=== PATIENT | female | born 1955 | race Caucasian/White ===

== ENCOUNTER 2017-04-27 07:54 | Day surgery (SDC) | payer BC, OTHER ==
[~2017-04-27 07:54] MED LIST: ATOR10; Aspirin EC81 MG; DHEA; NAPR500 PO; TRAM50 PO; [UNRECOGNIZED DRUG - REMARK]
== END 2017-04-27 08:07 | disposition home or self-care (01) ==
LOC: ORSCSDS 07:54
DX: Z86.010 Personal history of colon polyps (principal); E03.9 Hypothyroidism, unspecified; Z79.82 Long term (current) use of aspirin; Z79.899 Other long term (current) drug therapy; Z53.9 Procedure and treatment not carried out, unspecified reason

== ENCOUNTER → 2019-01-03 | Outpatient (CLI) | payer BC, OTHER | END | disposition home or self-care (01) | LOC: LAB SHORT 13:17 → LAB 13:17 | DX: R31.9 Hematuria, unspecified (principal) | CPT/HCPCS: 87086 ==

== ENCOUNTER → 2024-01-19 | Outpatient (CLI) | payer OTHER | LOC: LAB 08:05 → LAB SHORT 08:05 | DX: L60.2 Onychogryphosis (principal); B35.1 Tinea unguium | CPT/HCPCS: 88305; 88312 ==